=== PATIENT | male | born 1950 | race Caucasian/White ===

== ENCOUNTER 2019-02-14 15:34 | Emergency (ER) | payer MEDICARE, OTHER, SELFPAY ==
[2019-02-14 15:42] VITALS: BP 147/82; PULSE 81; RESP 16; TEMP 36.4; O2SAT 100; BMI 25.0
--- NOTE | 2019-02-14 15:42 | DI.RAD.S_ITS ---
PROCEDURE: XR SHOULDER LT MIN 2V INDICATIONS: Fell down a couple stairs TECHNIQUE: 2 views of the shoulder were acquired. COMPARISON: None. FINDINGS: Bones: No fractures or dislocations. No suspicious bony lesions. No rib fractures are seen, the visualized ribs appear intact. Mild degenerative changes are seen, mild subacromial spurring. Soft tissues: No suspicious soft tissue calcifications. The visualized lung demonstrates an unremarkable appearance. IMPRESSION: No acute plain film abnormality is seen. If there is focal tenderness, or other clinical concern for a fracture not seen on these images in this patient with a given history of trauma, please consider a dedicated CT or a short-term followup plain film series (in 1-2 weeks) for further evaluation. Dictated by: Amadou Yancey M.D. on 02/14/2019 at 15:11 Approved by: Amadou Yancey M.D. on 02/14/2019 at 15:12
[2019-02-14] MEDS: HYDROCODONE/ACET 5/325 TABLET 1 TAB PO ×2 (16:13→17:54)
[2019-02-14] MEDS: ONDANSETRON 4 MG ODT SL (16:14)
--- NOTE | 2019-02-14 16:15 | DI.RAD.S_ITS ---
PROCEDURE: XR ELBOW LT 2V INDICATIONS: s/p fall on steps, L arm pain TECHNIQUE: 3 views of the elbow were acquired. COMPARISON: [facility], CT, CT HEAD/BRAIN WO CON, 02/14/2019, 16:22. [facility], CR, XR SHOULDER LT MIN 2V, 02/14/2019, 15:54. FINDINGS: Bones: No fractures or dislocations. No suspicious bony lesions. Soft tissues: No elbow joint effusion. No suspicious soft tissue calcifications. IMPRESSION: No displaced fractures are seen on these plain films. If there is focal tenderness, or other clinical concern for a fracture not seen on these images in this patient with a given history of trauma, please consider a dedicated CT or a short-term followup plain film series (in 1-2 weeks) for further evaluation. Dictated by: Amadou Yancey M.D. on 02/14/2019 at 15:43 Approved by: Amadou Yancey M.D. on 02/14/2019 at 15:44
--- NOTE | 2019-02-14 16:18 | DI.CT.S_ITS ---
PROCEDURE: CT HEAD/BRAIN WO CON INDICATIONS: s/p fall 5-6 steps, on Eliquis TECHNIQUE: Noncontrast 4.5 mm thick angled axial sections acquired from the foramen magnum to the vertex, with coronal and sagittal reformats. For radiation dose reduction, the following was used: automated exposure control, adjustment of mA and/or kV according to patient size. COMPARISON: [facility], CR, XR SHOULDER LT MIN 2V, 02/14/2019, 15:54. FINDINGS: Image quality: Excellent. CSF spaces: Basal cisterns are patent. No extra-axial fluid collections. The ventricles are symmetric in size and shape. Brain: No intracranial bleeds or masses. There is cerebral volume loss for age, with resultant ventricular and sulcal prominence. There are periventricular and deep white matter chronic small vessel ischemic changes. There is a remote infarction seen involving the deep white matter of the left frontal lobe, which continues into the left basal ganglia. There is intracranial internal carotid artery atherosclerosis. Skull and face: Calvarium and visualized facial bones appear intact, without suspicious lesions. Sinuses: Visualized sinuses and mastoids are clear. IMPRESSION: No findings of acute intracranial hemorrhage can be seen. 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 Dictated by: Amadou Yancey M.D. on 02/14/2019 at 15:41 Approved by: Amadou Yancey M.D. on 02/14/2019 at 15:43
--- NOTE | 2019-02-14 16:56 | ED.UPPEXIN ---
HPI - Extremity Injury (Upper) <RADHA Miller - Last Filed: 02/15/19 01:08> General Chief Complaint: Extremity Injury, Upper Stated Complaint: Left shoulder injury Time Seen by Provider: 02/14/19 15:41 Source: patient and family Mode of arrival: ambulatory Limitations: no limitations History of Present Illness HPI narrative: This is a 68 you're male, nonsmoker, who presents with his spouse to ED with chief complain of left arm pain mostly in anterior shoulder pain from fall. He reports his pain is in 8 to 910. 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 He had sustained a fall on 5-6 steps on the stairs due to history of CVA and right-sided weakness. He reports he fell after he tripped and he was not having chest pain, difficulty breathing nor was dizzy prior to the fall. He currently is taking Eliquis for history of stroke and reports unsure of hitting his head. He denies mid cervical tenderness. He has a history of AFib and an ablation surgery was done for this. He arrived with sling that was applied by medics at the scene. He had planned return to home in about a week. He reports that he has able to move his fingers but some tingling numbness to his fingers. The patient asked whether MRI test could be done today. Related Data Previous Rx's Medication Instructions Recorded hydrocodone-acetaminophen [[place]] 1 tab PO Q4-6H PRN #20 tab 02/14/19 Allergies Allergy/AdvReac Type Severity Reaction Status Date / Time Sulfa (Sulfonamide Allergy Verified 02/14/19 15:42 Antibiotics) Review of Systems <RADHA Miller - Last Filed: 02/15/19 01:08> Review of Systems General: Denies fever, chills, fatigue, malaise, sweats. HEENT: Denies headache or neck pain. Denies sinus pain, ear pain, sore throat, difficulty swallowing, dizziness. Respiratory: Denies dyspnea, cough, wheezing, hemoptysis, sputum. Cardiovascular: Denies chest pain, palpitations, orthopnea, edema. Gastrointestinal: Reports mild nausea. Denies vomiting, abdominal pain, diarrhea, constipation, melena. : Denies dysuria, frequency, incontinence, hematuria, urinary retention. Musculoskeletal: Reports severe L anterior shoulder pain. Reports pain in L arm. Denies weakness, joint pain or bony pain. Skin: Denies rash, skin lesions, or other. Neurologic: Reports R side weakness from the previous CVA. Denies headache. Some tingling/numbness to L fingers. Denies change in speech, confusion, seizures, incoordination. Psychiatric: No concerning psychosocial issues. 12-point review of systems is negative except for those stated above. PFSH <RADHA Miller - Last Filed: 02/15/19 01:08> Medical History (Updated 02/15/19 @ 00:39 by RADHA Miller) History of CVA (cerebrovascular accident) (Acute) Right sided weakness (Chronic) History of atrial fibrillation without current medication (Resolved) Surgical History (Updated 02/15/19 @ 00:39 by RADHA Miller) H/O cardiac radiofrequency ablation (Chronic) Social History (Updated 02/15/19 @ 00:39 by RADHA Miller) Smoking Status: Never smoker alcohol intake: never substance use type: does not use Social History (Updated 02/15/19 @ 00:39 by RADHA Miller) Smoking Status: Never smoker alcohol intake: never substance use type: does not use Exam <RADHA Miller - Last Filed: 02/15/19 01:08> Narrative Exam Narrative: GEN: Alert, oriented x 3, well appearing and nourished. Appears to be in discomfort. Head: Normal cephalic, atraumatic. No scalp or temporal tenderness, palpable mass or rash. EYES: Pupils are equal, round, and reactive to light and accommodation. Extraocular muscles are intact bilaterally. There is no subconjunctival hemorrhage, exudate and sclera non-icteric. ENT: Bilateral auditory canals without drainage or hemotympanum. Hearing grossly intact. Nose without bleeding, purulent discharge. Mucous membrane moist, no mucosal lesion. Throat without erythema, tonsillar hypertrophy or exudate. Airway patent. Neck: No midcervical bony tenderness to palpate and able to flex, extend and rotate his neck w/o pain. Trachea in midline. No JVD, non-tender without lymphadenopathy. No masses or thyroid megaly. Supple, non-tender and meningeal signs. CARDIAC: Normal regular rate and rhythm without murmurs, gallops, or rubs. No chest wall tenderness. No peripheral edema, cyanosis or pallor. Capillary refill is less than 2 seconds. RESPIRATORY: Lungs are cleat to auscultate bilaterally. No cough, wheezes, rales, or rhonchi. No stridor, respiratory distress, increase work of breathing, or accessary muscle used. ABD: Abdomen soft, nontender and non-distended. No guarding or rebound tenderness to palpate. Bowel sounds are normal in all 4 quadrants. There is no palpable masses or organomegaly. SKIN: Warm, dry, normal color for patient. No erythema, lesions or rash. BACK: Nontender without deformity or crepitance. No flank tenderness. NEUROLOGICAL: Alert and oriented to place, time and person. Sensation and motor function intact bilaterally. No facial droops, dysphasia. PSYCHIATRIC: Good judgement and reason, without hallucinations, abnormal affect or abnormal behaviors during the examination. Initial Vital Signs Initial Vital Signs: Vital Signs Temperature 97.5 F L 02/14/19 15:42 Pulse Rate 81 02/14/19 15:42 Respiratory Rate 16 02/14/19 15:42 Blood Pressure 147/82 H 02/14/19 15:42 Pulse Oximetry 100 02/14/19 15:42 Extrem General: normal to inspection, capillary refill normal, no clubbing, cyanosis or edema and no calf tenderness Right upper extremity: normal to inspection and normal capillary refill Left upper extremity: normal to inspection, normal capillary refill and shoulder/upper arm Details: inspection abnormal, tenderness and abnormal ROM (Decreased active and passive ROM due to pain with flextion, extension, abduction, adduction, internal and external rotation) Details: pain with active ROM and pain with passive ROM; no swelling, no abrasions, no lacerations, no ecchymosis, no deformity and no unsual warmth; no cyanosis, no edema and joint enlargement noted Right lower extremity: normal to inspection Left lower extremity: normal to inspection <Marcie Da Silva DO - Last Filed: 02/15/19 08:42> Initial Vital Signs Initial Vital Signs: Vital Signs Temperature 97.5 F L 02/14/19 15:42 Pulse Rate 81 02/14/19 15:42 Respiratory Rate 16 02/14/19 15:42 Blood Pressure 147/82 H 02/14/19 15:42 Pulse Oximetry 100 02/14/19 15:42 Procedures <[facility]BY [facility] Last Filed: 02/15/19 01:08> Orthopedic Splinting/Casting Injury #1: Side: left Upper Extremity Injury Location: shoulder Upper Extremity Immobilizer: sling/shoulder immobilizer Post splinting neuro exam: intact Post splinting vascular exam: intact Placed by: Nursing Scores <Tung Pennington [facility] Last Filed: 02/15/19 01:08> Nexus Score for C-Spine Focal Neurologic deficit present: No Midline spinal tenderness present: No Altered level of conciousness present: No Intoxication present: No Distracting Injury Present: Yes Nexus Criteria for C-spine: 1 Course <Tung MossABBY [facility] Last Filed: 02/15/19 01:08> Orders Ordered: Discontinued Medications Hydrocodone Bitart/Acetaminophen ([place] 5/325) 1 tab PO NOW ONE Stop: 02/14/19 16:02 Last Admin: 02/14/19 16:13 Dose: 1 tab Hydrocodone Bitart/Acetaminophen ([place] 5/325) 1 tab PO NOW ONE Stop: 02/14/19 17:50 Last Admin: 02/14/19 17:54 Dose: 1 tab Hydrocodone Bitart/Acetaminophen (Vicodin Prepack) 1 bottle MISC SEEINSTR ONE Stop: 02/14/19 17:50 Last Admin: 02/14/19 17:54 Dose: 1 bottle Cyclobenzaprine HCl (Flexeril 10 Mg Prepack) 1 bottle MISC SEEINSTR ASHLEIGH Last Admin: 02/14/19 17:54 Dose: 1 bottle Ondansetron HCl (Zofran Odt) 4 mg SL NOW ONE Stop: 02/14/19 16:02 Last Admin: 02/14/19 16:14 Dose: 4 mg Ondansetron HCl (Zofran Odt Prepack) 1 bottle MISC SEEINSTR ONE Stop: 02/14/19 17:45 Last Admin: 02/14/19 17:54 Dose: 1 bottle Vital Signs - 8 hr 02/14/19 18:22 Pulse Rate 71 Respiratory Rate 20 Blood Pressure 123/81 Pulse Oximetry 100 <Marcie Da Silva DO - Last Filed: 02/15/19 08:42> Orders Ordered: Discontinued Medications Hydrocodone Bitart/Acetaminophen ([place] 5/325) 1 tab PO NOW ONE Stop: 02/14/19 16:02 Last Admin: 02/14/19 16:13 Dose: 1 tab Hydrocodone Bitart/Acetaminophen ([place] 5/325) 1 tab PO NOW ONE Stop: 02/14/19 17:50 Last Admin: 02/14/19 17:54 Dose: 1 tab Hydrocodone Bitart/Acetaminophen (Vicodin Prepack) 1 bottle MISC SEEINSTR ONE Stop: 02/14/19 17:50 Last Admin: 02/14/19 17:54 Dose: 1 bottle Cyclobenzaprine HCl (Flexeril 10 Mg Prepack) 1 bottle MISC SEEINSTR ASHLEIGH Last Admin: 02/14/19 17:54 Dose: 1 bottle Ondansetron HCl (Zofran Odt) 4 mg SL NOW ONE Stop: 02/14/19 16:02 Last Admin: 02/14/19 16:14 Dose: 4 mg Ondansetron HCl (Zofran Odt Prepack) 1 bottle MISC SEEINSTR ONE Stop: 02/14/19 17:45 Last Admin: 02/14/19 17:54 Dose: 1 bottle Vital Signs - 8 hr 02/14/19 18:22 Pulse Rate 71 Respiratory Rate 20 Blood Pressure 123/81 Pulse Oximetry 100 MDM - Extremity Injury (Upper) <RADHA Miller - Last Filed: 02/15/19 01:08> Differential Diagnosis Differential diagnosis: Likely sprain and strain of wrist, fracture of wrist, dislocation of shoulder, fracture of humerus, fracture of clavicle and other (sprain/contusion to L shoulder, head injury, head bleeding) Medical Records Attestation: I reviewed the patient's medical records. Imaging Data CT-head: Radiologist's impression: [address] [address] [address] Scan Report Signed Patient: Andreas Corona CMR#: [id number] : 1Acct:[id number] Age/Sex: 68 / MDate of Service: 02/14/19 Loc: ED Accession Number: [id number] Procedure: CT head/brain wo con Ordering Provider: Tung Pennington [facility] PROCEDURE: CT HEAD/BRAIN WO CON INDICATIONS: s/p fall 5-6 steps, on Eliquis TECHNIQUE: Noncontrast 4.5 mm thick angled axial sections acquired from the foramen magnum to the vertex, with coronal and sagittal reformats. For radiation dose reduction, the following was used: automated exposure control, adjustment of mA and/or kV according to patient size. COMPARISON: [facility], MICHELE, XR SHOULDER LT MIN 2V, 02/14/2019, 15:54. FINDINGS: Image quality: Excellent. CSF spaces: Basal cisterns are patent. No extra-axial fluid collections. The ventricles are symmetric in size and shape. Brain: No intracranial bleeds or masses. There is cerebral volume loss for age, with resultant ventricular and sulcal prominence. There are periventricular and deep white matter chronic small vessel ischemic changes. There is a remote infarction seen involving the deep white matter of the left frontal lobe, which continues into the left basal ganglia. There is intracranial internal carotid artery atherosclerosis. Skull and face: Calvarium and visualized facial bones appear intact, without suspicious lesions. Sinuses: Visualized sinuses and mastoids are clear. IMPRESSION: No findings of acute intracranial hemorrhage can be seen. 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 Dictated by: Amadou Yancey M.D. on 02/14/2019 at 15:41 Approved by: Amadou Yancey M.D. on 02/14/2019 at 15:43 XR-elbow: Radiologist's impression: [place] [address] CT Scan Report Signed Patient: Andreas Corona CMR#: [id number] : [id number]:[id number] Age/Sex: 68 / MDate of Service: 02/14/19 Loc: ED Accession Number: [id number] Procedure: CT head/brain wo con Ordering Provider: Tung Pennington [facility] PROCEDURE: CT HEAD/BRAIN WO CON INDICATIONS: s/p fall 5-6 steps, on Eliquis TECHNIQUE: Noncontrast 4.5 mm thick angled axial sections acquired from the foramen magnum to the vertex, with coronal and sagittal reformats. For radiation dose reduction, the following was used: automated exposure control, adjustment of mA and/or kV according to patient size. COMPARISON: [facility], CR, XR SHOULDER LT MIN 2V, 02/14/2019, 15:54. FINDINGS: Image quality: Excellent. CSF spaces: Basal cisterns are patent. No extra-axial fluid collections. The ventricles are symmetric in size and shape. Brain: No intracranial bleeds or masses. There is cerebral volume loss for age, with resultant ventricular and sulcal prominence. There are periventricular and deep white matter chronic small vessel ischemic changes. There is a remote infarction seen involving the deep white matter of the left frontal lobe, which continues into the left basal ganglia. There is intracranial internal carotid artery atherosclerosis. Skull and face: Calvarium and visualized facial bones appear intact, without suspicious lesions. Sinuses: Visualized sinuses and mastoids are clear. IMPRESSION: No findings of acute intracranial hemorrhage can be seen. 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 Dictated by: Amadou Yancey M.D. on 02/14/2019 at 15:41 Approved by: Amadou Yancey M.D. on 02/14/2019 at 15:43 XR-shoulder: Radiologist's impression: [place] [address] XRay Report Signed Patient: Andreas Corona CMR#: [id number] : [id number]:[id number] Age/Sex: 68 / MDate of Service: 02/14/19 Loc: ED Accession Number: [id number] Procedure: XR shoulder LT min 2V Ordering Provider: Tung Pennington PROCEDURE: XR SHOULDER LT MIN 2V INDICATIONS: Fell down a couple stairs TECHNIQUE: 2 views of the shoulder were acquired. COMPARISON: None. FINDINGS: Bones: No fractures or dislocations. No suspicious bony lesions. No rib fractures are seen, the visualized ribs appear intact. Mild degenerative changes are seen, mild subacromial spurring. Soft tissues: No suspicious soft tissue calcifications. The visualized lung demonstrates an unremarkable appearance. IMPRESSION: No acute plain film abnormality is seen. If there is focal tenderness, or other clinical concern for a fracture not seen on these images in this patient with a given history of trauma, please consider a dedicated CT or a short-term followup plain film series (in 1-2 weeks) for further evaluation. Dictated by: Amadou Yancey M.D. on 02/14/2019 at 15:11 Approved by: Amadou Yancey M.D. 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 He initially denied of hitting his head to triage nurse but reports unsure of this to me. There was no step-off, crepitus, abrasion, hematoma on the scalp. He had no mid cervical tenderness to palpate and active range of motion for flexion, extension, rotation or intact without pain. He complained of mainly and severe left anterior shoulder pain with some tingling numbness to fingertips. He is currently taking Eliquis for the history of CVA. He has residual of right-sided weakness since CVA. The patient reports tripped and fall this afternoon and denies any chest pain, breathing difficulty, dizziness prior to the fall. Initially, the shoulder or arm exam was difficult due to his severe pain. However, his circulation, cap refill, movement was intact. Given his history and fall, head CT was obtained and it indicates no acute findings or bleeding. However, it showed remote infarct in his left basal ganglia and deep white matter. The NEXUS for C-spine score was [address] test was deferred after correlating with physical exam. The patient's left shoulder x-ray shows no fractures or dislocations or bony lesions. There was no rib fractures were seen. The lung demonstrates an unremarkable appearance. There was mild degenerative changes were seen along mild sub acromial spurring. Left elbow x-ray shows no fractures, elbow joint effusion, soft tissue calcifications or dislocations. The patient was medicated with Zofran ODT and 1 tab of [place] when he arrived to ED. The patient reported the medication took the edge off on his pain. More detailed shoulder and upper arm exam was done at this time and the patient had limited active and passive range of motion on his left arm due to pain. The patient was medicated with additional [place] prior DC to home. Shoulder immobilizer was applied on left arm for comfort and the patient was advised to use ice pack for next couple of days often. Patient is planning to call his orthopedist friend [place] and will consider living the Tylenol earlier than he planned to follow up. Patient was discharged to home with prepack cyclobenzaprine, Zofran, [place] since local pharmacy is closed. Additional paper prescription for [place] has provided if patient stays in town for next 1 week. Narcotic medication precautions were discussed with the patient and spouse. The patient was advised follow-up with his primary care physician for further evaluation, possibly additional imaging tests. Patient was to monitor red flag symptoms such as weakness, tingling/numbness, severe pain, chest pain, difficulty breathing, any other acute concerns and return to ED. There was no questions were expressed by the patient and family member and they both agreed with treatment plan. Discharge Plan Departure Patient Disposition: Home Clinical Impression: Fall (on) (from) other stairs and steps, initial encounter Left shoulder strain Qualifiers: Encounter type: initial encounter Qualified Code(s): S46.912A - Strain of unspecified muscle, fascia and tendon at shoulder and upper arm level, left arm, initial encounter Discharge Date/Time: 02/14/19 18:23 Interventions: ED Discharge Assessment Last Done: 02/14/19 18:22 Instructions: How to Prevent Falls, DI for Shoulder Pain Activity Restrictions/Additional Instructions: You have been diagnosed with [ shoulder strain and mechanical fall on stairs ]. What to do: *Take your medications as directed. Cyclobenzaprine and [place] will make you drowsy. Please take precaution and not to drive, drink alcohol, or operate heavy equipment while on this medications. You could take cyclobenzaprine at night trying to sleep. [place] could cause constipation so please increase your fiber and fluid intake. Please use shoulder immobilizer for comfort and ice packs for the next couple of days frequently. *Follow up with your primary care provider next week and call for an appointment. You may need further imaging test and/orthopedic referral. Let them know you were seen in the ED and that we asked you to be seen in follow up. *Return to ED if you have any new, worsening, or concerning symptoms, such as [severe pain, tingling numbness to left arm, weakness, chest pain, difficulty breathing, dizziness, any acute worsening symptoms]. Prescriptions: New hydrocodone-acetaminophen [[place]] 5-325 mg tablet 1 tab PO Q4-6H PRN (Reason: pain) Qty: 20 RF: 0 <Marcie Da Silva DO - Last Filed: 02/15/19 08:42> Cosign ED Attending Cosignature Attestation: I was immediately available in the department for consultation, care was discussed. This documentation has been reviewed and I agree with assessment and plan. Supervised by Marcie Da Silva DO
--- NOTE | 2019-02-14 16:59 | ED_ITS ---
HPI - Extremity Injury (Upper) <RADHA Miller - Last Filed: 02/15/19 01:08> General Chief Complaint: Extremity Injury, Upper Stated Complaint: Left shoulder injury Time Seen by Provider: 02/14/19 15:41 Source: patient and family Mode of arrival: ambulatory Limitations: no limitations History of Present Illness HPI narrative: This is a 68 you're male, nonsmoker, who presents with his spouse to ED with chief complain of left arm pain mostly in anterior shoulder pain from fall. He reports his pain is in 8 to 910. 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 He had sustained a fall on 5-6 steps on the stairs due to history of CVA and right- sided weakness. He reports he fell after he tripped and he was not having chest pain, difficulty breathing nor was dizzy prior to the fall. He currently is taking Eliquis for history of stroke and reports unsure of hitting his head. He denies mid cervical tenderness. He has a history of AFib and an ablation surgery was done for this. He arrived with sling that was applied by medics at the scene. He had planned return to home in about a week. He reports that he h as able to move his fingers but some tingling numbness to his fingers. The patient asked whether MRI test could be done today. Related Data Previous Rx's Medication Instructions Recorded hydrocodone-acetaminophen [[place]] 1 tab PO Q4-6H PRN #20 tab 02/14/19 Allergies Allergy/AdvReac Type Severity Reaction Status Date / Time Sulfa (Sulfonamide Allergy Verified 02/14/19 15:42 Antibiotics) Review of Systems <RADHA Miller - Last Filed: 02/15/19 01:08> Review of Systems General: Denies fever, chills, fatigue, malaise, sweats. HEENT: Denies headache or neck pain. Denies sinus pain, ear pain, sore throat, difficulty swallowing, dizziness. Respiratory: Denies dyspnea, cough, wheezing, hemoptysis, sputum. Cardiovascular: Denies chest pain, palpitations, orthopnea, edema. Gastrointestinal: Reports mild nausea. Denies vomiting, abdominal pain, diarrhea, constipation, melena. : Denies dysuria, frequency, incontinence, hematuria, urinary retention. Musculoskeletal: Reports severe L anterior shoulder pain. Reports pain in L arm. Denies weakness, joint pain or bony pain. Skin: Denies rash, skin lesions, or other. Neurologic: Reports R side weakness from the previous CVA. Denies headache. Some tingling/numbness to L fingers. Denies change in speech, confusion, seizures, incoordination. Psychiatric: No concerning psychosocial issues. 12-point review of systems is negative except for those stated above. PFSH <RADHA Miller - Last Filed: 02/15/19 01:08> Medical History (Updated 02/15/19 @ 00:39 by RADHA Miller) History of CVA (cerebrovascular accident) (Acute) Right sided weakness (Chronic) History of atrial fibrillation without current medication (Resolved) Surgical History (Updated 02/15/19 @ 00:39 by RADHA Miller) H/O cardiac radiofrequency ablation (Chronic) Social History (Updated 02/15/19 @ 00:39 by RADHA Miller) Smoking Status: Never smoker alcohol intake: never substance use type: does not use Social History (Updated 02/15/19 @ 00:39 by RADHA Miller) Smoking Status: Never smoker alcohol intake: never substance use type: does not use Exam <RADHA Miller - Last Filed: 02/15/19 01:08> Narrative Exam Narrative: GEN: Alert, oriented x 3, well appearing and nourished. Appears to be in discomfort. Head: Normal cephalic, atraumatic. No scalp or temporal tenderness, palpable mass or rash. EYES: Pupils are equal, round, and reactive to light and accommodation. Extraocular muscles are intact bilaterally. There is no subconjunctival hemorrhage, exudate and sclera non-icteric. ENT: Bilateral auditory canals without drainage or hemotympanum. Hearing grossly intact. Nose without bleeding, purulent discharge. Mucous membrane moist, no mucosal lesion. Throat without erythema, tonsillar hypertrophy or exudate. Airway patent. Neck: No midcervical bony tenderness to palpate and able to flex, extend and rotate his neck w/o pain. Trachea in midline. No JVD, non-tender without lymphadenopathy. No masses or thyroid megaly. Supple, non-tender and meningeal signs. CARDIAC: Normal regular rate and rhythm without murmurs, gallops, or rubs. No chest wall tenderness. No peripheral edema, cyanosis or pallor. Capillary refi ll is less than 2 seconds. RESPIRATORY: Lungs are cleat to auscultate bilaterally. No cough, wheezes, rales, or rhonchi. No stridor, respiratory distress, increase work of breathing, or accessary muscle used. ABD: Abdomen soft, nontender and non-distended. No guarding or rebound tenderness to palpate. Bowel sounds are normal in all 4 quadrants. There is no palpable masses or organomegaly. SKIN: Warm, dry, normal color for patient. No erythema, lesions or rash. BACK: Nontender without deformity or crepitance. No flank tenderness. NEUROLOGICAL: Alert and oriented to place, time and person. Sensation and motor function intact bilaterally. No facial droops, dysphasia. PSYCHIATRIC: Good judgement and reason, without hallucinations, abnormal affect or abnormal behaviors during the examination. Initial Vital Signs Initial Vital Signs: Vital Signs Temperature 97.5 F L 02/14/19 15:42 Pulse Rate 81 02/14/19 15:42 Respiratory Rate 16 02/14/19 15:42 Blood Pressure 147/82 H 02/14/19 15:42 Pulse Oximetry 100 02/14/19 15:42 Extrem General: normal to inspection, capillary refill normal, no clubbing, cyanosis or edema and no calf tenderness Right upper extremity: normal to inspection and normal capillary refill Left upper extremity: normal to inspection, normal capillary refill and shoulder/upper arm Details: inspection abnormal, tenderness and abnormal ROM (Decreased active and passive ROM due to pain with flextion, extension, abduction, adduction, internal and external rotation) Details: pain with active ROM and pain with passive ROM; no swelling, no abrasions, no lacerations, no ecchymosis, no deformity and no unsual warmth; no cyanosis, no edema and joint enlargement noted Right lower extremity: normal to inspection Left lower extremity: normal to inspection <Marcie Da Silva DO - Last Filed: 02/15/19 08:42> Initial Vital Signs Initial Vital Signs: Vital Signs Temperature 97.5 F L 02/14/19 15:42 Pulse Rate 81 02/14/19 15:42 Respiratory Rate 16 02/14/19 15:42 Blood Pressure 147/82 H 02/14/19 15:42 Pulse Oximetry 100 02/14/19 15:42 Procedures <[facility]ABBY [facility] Last Filed: 02/15/19 01:08> Orthopedic Splinting/Casting Injury #1: Side: left Upper Extremity Injury Location: shoulder Upper Extremity Immobilizer: sling/shoulder immobilizer Post splinting neuro exam: intact Post splinting vascular exam: intact Placed by: Nursing Scores <Tung MossDeanaABBY [facility] Last Filed: 02/15/19 01:08> Nexus Score for C-Spine Focal Neurologic deficit present: No Midline spinal tenderness present: No Altered level of conciousness present: No Intoxication present: No Distracting Injury Present: Yes Nexus Criteria for C-spine: 1 Course <Tung MossDeanaABBY [facility] Last Filed: 02/15/19 01:08> Orders Ordered: Discontinued Medications Hydrocodone Bitart/Acetaminophen ([place] 5/325) 1 tab PO NOW ONE Stop: 02/14/19 16:02 Last Admin: 02/14/19 16:13 Dose: 1 tab Hydrocodone Bitart/Acetaminophen ([place] 5/325) 1 tab PO NOW ONE Stop: 02/14/19 17:50 Last Admin: 02/14/19 17:54 Dose: 1 tab Hydrocodone Bitart/Acetaminophen (Vicodin Prepack) 1 bottle MISC SEEINSTR ONE Stop: 02/14/19 17:50 Last Admin: 02/14/19 17:54 Dose: 1 bottle Cyclobenzaprine HCl (Flexeril 10 Mg Prepack) 1 bottle MISC SEEINSTR ASHLEIGH Last Admin: 02/14/19 17:54 Dose: 1 bottle Ondansetron HCl (Zofran Odt) 4 mg SL NOW ONE Stop: 02/14/19 16:02 Last Admin: 02/14/19 16:14 Dose: 4 mg Ondansetron HCl (Zofran Odt Prepack) 1 bottle MISC SEEINSTR ONE Stop: 02/14/19 17:45 Last Admin: 02/14/19 17:54 Dose: 1 bottle Vital Signs - 8 hr 02/14/19 18:22 Pulse Rate 71 Respiratory Rate 20 Blood Pressure 123/81 Pulse Oximetry 100 <Marcie Da Silva DO - Last Filed: 02/15/19 08:42> Orders Ordered: Discontinued Medications Hydrocodone Bitart/Acetaminophen ([place] 5/325) 1 tab PO NOW ONE Stop: 02/14/19 16:02 Last Admin: 02/14/19 16:13 Dose: 1 tab Hydrocodone Bitart/Acetaminophen ([place] 5/325) 1 tab PO NOW ONE Stop: 02/14/19 17:50 Last Admin: 02/14/19 17:54 Dose: 1 tab Hydrocodone Bitart/Acetaminophen (Vicodin Prepack) 1 bottle MISC SEEINSTR ONE Stop: 02/14/19 17:50 Last Admin: 02/14/19 17:54 Dose: 1 bottle Cyclobenzaprine HCl (Flexeril 10 Mg Prepack) 1 bottle MISC SEEINSTR ASHLEIGH Last Admin: 02/14/19 17:54 Dose: 1 bottle Ondansetron HCl (Zofran Odt) 4 mg SL NOW ONE Stop: 02/14/19 16:02 Last Admin: 02/14/19 16:14 Dose: 4 mg Ondansetron HCl (Zofran Odt Prepack) 1 bottle MISC SEEINSTR ONE Stop: 02/14/19 17:45 Last Admin: 02/14/19 17:54 Dose: 1 bottle Vital Signs - 8 hr 02/14/19 18:22 Pulse Rate 71 Respiratory Rate 20 Blood Pressure 123/81 Pulse Oximetry 100 MDM - Extremity Injury (Upper) <RADHA Miller - Last Filed: 02/15/19 01:08> Differential Diagnosis Differential diagnosis: Likely sprain and strain of wrist, fracture of wrist, dislocation of shoulder, fracture of humerus, fracture of clavicle and other (sprain/contusion to L shoulder, head injury, head bleeding) Medical Records Attestation: I reviewed the patient's medical records. Imaging Data CT-head: Radiologist's impression: [address] [address] [address] Scan Report Signed Patient: Andreas Corona CMR#: [id number] : 1Acct:[id number] Age/Sex: 68 / MDate of Service: 02/14/19 Loc: ED Accession Number: [id number] Procedure: CT head/brain wo con Ordering Provider: Tung PenningtonP PROCEDURE: CT HEAD/BRAIN WO CON INDICATIONS: s/p fall 5-6 steps, on Eliquis TECHNIQUE: Noncontrast 4.5 mm thick angled axial sections acquired from the foramen magnum to the vertex, with coronal and sagittal reformats. For radiation dose reduction, the following was used: automated exposure control, adjustment of mA and/or kV according to patient size. COMPARISON: [facility], MICHELE, XR SHOULDER LT MIN 2V, 02/14/2019, 15:54. FINDINGS: Image quality: Excellent. CSF spaces: Basal cisterns are patent. No extra-axial fluid collections. The ventricles are symmetric in size and shape. Brain: No intracranial bleeds or masses. There is cerebral volume loss for age, with resultant ventricular and sulcal prominence. There are periventricular and deep white matter chronic small vessel ischemic changes. There is a remote infarction seen involving the deep white matter of the left frontal lobe, which continues into the left basal ganglia. There is intracranial internal carotid artery atherosclerosis. Skull and face: Calvarium and visualized facial bones appear intact, without suspicious lesions. Sinuses: Visualized sinuses and mastoids are clear. IMPRESSION: No findings of acute intracranial hemorrhage can be seen. 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 Dictated by: Amadou Yancey M.D. on 02/14/2019 at 15:41 Approved by: Amadou Yancey M.D. on 02/14/2019 at 15:43 XR-elbow: Radiologist's impression: [place] [address] CT Scan Report Signed Patient: Andreas Corona CMR#: [id number] : 1950cct:[id number] Age/Sex: 68 / MDate of Service: 02/14/19 Loc: ED Accession Number: [id number] Procedure: CT head/brain wo con Ordering Provider: Tung Pennington [facility] PROCEDURE: CT HEAD/BRAIN WO CON INDICATIONS: s/p fall 5-6 steps, on Eliquis TECHNIQUE: Noncontrast 4.5 mm thick angled axial sections acquired from the foramen magnum to the vertex, with coronal and sagittal reformats. For radiation dose reduction, the following was used: automated exposure control, adjustment of mA and/or kV according to patient size. COMPARISON: [facility], CR, XR SHOULDER LT MIN 2V, 02/14/2019, 15:54. FINDINGS: Image quality: Excellent. CSF spaces: Basal cisterns are patent. No extra-axial fluid collections. The ventricles are symmetric in size and shape. Brain: No intracranial bleeds or masses. There is cerebral volume loss for age, with resultant ventricular and sulcal prominence. There are periventricular and deep white matter chronic small vessel ischemic changes. There is a remote infarction seen involving the deep white matter of the left frontal lobe, which continues into the left basal ganglia. There is intracranial internal carotid artery atherosclerosis. Skull and face: Calvarium and visualized facial bones appear intact, without suspicious lesions. Sinuses: Visualized sinuses and mastoids are clear. IMPRESSION: No findings of acute intracranial hemorrhage can be seen. Remote infarction seen involving the left basal ganglia and left deep white ma tter. Dictated by: Amadou Yancey M.D. on 02/14/2019 at 15:41 Approved by: Amadou Yancey M.D. on 02/14/2019 at 15:43 XR-shoulder: Radiologist's impression: [place] [address] XRay Report Signed Patient: Andreas Corona CMR#: [id number] : 1950cct:[id number] Age/Sex: 68 / MDate of Service: 02/14/19 Loc: ED Accession Number: [id number] Procedure: XR shoulder LT min 2V Ordering Provider: Tung Pennington PROCEDURE: XR SHOULDER LT MIN 2V INDICATIONS: Fell down a couple stairs TECHNIQUE: 2 views of the shoulder were acquired. COMPARISON: None. FINDINGS: Bones: No fractures or dislocations. No suspicious bony lesions. No rib fractures are seen, the visualized ribs appear intact. Mild degenerative changes are seen, mild subacromial spurring. Soft tissues: No suspicious soft tissue calcifications. The visualized lung demonstrates an unremarkable appearance. IMPRESSION: No acute plain film abnormality is seen. If there is focal tenderness, or other clinical concern for a fracture not seen on these images in this patient with a given history of trauma, please consider a dedicated CT or a short-term followup plain film series (in 1-2 weeks) for further evaluation. Dictated by: Amadou Yancye M.D. on 02/14/2019 at 15:11 Approved by: Amadou Yancey M.D. 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 He initially denied of hitting his head to triage nurse but reports unsure of this to me. There was no step-off, crepitus, abrasion, hematoma on the scalp. He had no mid cervical tenderness to palpate and active range of motion for flexion, extension, rotation or intact without pain. He complained of mainly and severe left anterior shoulder pain with some tingling numbness to fingertips. He is currently taking Eliquis for the history of CVA. He has residual of right-sided weakness since CVA. The patient reports tripped and fall this afternoon and denies any chest pain, breathing difficulty, dizziness prior to the fall. Initially, the shoulder or arm exam was difficult due to his severe pain. However, his circulation, cap refill, movement was intact. Given his history and fall, head CT was obtained and it indicates no acute findings or bleeding. However, it showed remote infarct in his left basal ganglia and deep white matter. The NEXUS for C-spine score was [address] test was deferred after correlating with physical exam. The patient's left shoulder x-ray shows no fractures or dislocations or bony lesions. There was no rib fractures were seen. The lung demonstrates an unremarkable appearance. There was mild degenerative changes were seen along mild sub acromial spurring. Left elbow x- ray shows no fractures, elbow joint effusion, soft tissue calcifications or dislocations. The patient was medicated with Zofran ODT and 1 tab of [place] when he arrived to ED. The patient reported the medication took the edge off on his pain. More detailed shoulder and upper arm exam was done at this time and the patient had limited active and passive range of motion on his left arm due to pain. The patient was medicated with additional [place] prior DC to home. Shoulder immobilizer was applied on left arm for comfort and the patient was advised to use ice pack for next couple of days often. Patient is planning to call his orthopedist friend back at [place] in [place] and will consider living the Tylenol earlier than he planned to follow up. Patient was discharged to home with prepack cyclobenzaprine, Zofran, [place] since local pharmacy is closed. Additional paper prescription for [place] has provided if patient stays in town for next 1 week. Narcotic medication precautions were discussed with the patient and spouse. The patient was advised follow-up with his primary care physician for further evaluation, possibly additional imaging tests. Patient was to monitor red flag symptoms such as weakness, tingling/numbness, severe pain, chest pain, difficulty breathing, any other acute concerns and return to ED. There was no questions were expressed by the patient and family member and they both agreed with treatment plan. Discharge Plan Departure Patient Disposition: Home Clinical Impression: Fall (on) (from) other stairs and steps, initial encounter Left shoulder strain Qualifiers: Encounter type: initial encounter Qualified Code(s): S46.912A - Strain of unspecified muscle, fascia and tendon at shoulder and upper arm level, left arm, initial encounter Discharge Date/Time: 02/14/19 18:23 Interventions: ED Discharge Assessment Last Done: 02/14/19 18:22 Instructions: How to Prevent Falls, DI for Shoulder Pain Activity Restrictions/Additional Instructions: You have been diagnosed with [ shoulder strain and mechanical fall on stairs ]. What to do: *Take your medications as directed. Cyclobenzaprine and [place] will make you drowsy. Please take precaution and not to drive, drink alcohol, or operate heavy equipment while on this medications. You could take cyclobenzaprine at night trying to sleep. [place] could cause constipation so please increase your fiber and fluid intake. Please use shoulder immobilizer for comfort and ice packs for the next couple of days frequently. *Follow up with your primary care provider next week and call for an appointment. You may need further imaging test and/orthopedic referral. Let them know you were seen in the ED and that we asked you to be seen in follow up. *Return to ED if you have any new, worsening, or concerning symptoms, such as [severe pain, tingling numbness to left arm, weakness, chest pain, difficulty breathing, dizziness, any acute worsening symptoms]. Prescriptions: New hydrocodone-acetaminophen [[place]] 5-325 mg tablet 1 tab PO Q4-6H PRN (Reason: pain) Qty: 20 RF: 0 <Marcie Da Silva DO - Last Filed: 02/15/19 08:42> Cosign ED Attending Cosignature Attestation: I was immediately available in the department for consultation, care was discussed. This documentation has been reviewed and I agree with assessment and plan. Supervised by Marcie Da Silva DO
[2019-02-14] MEDS: ONDANSETRON 4 MG ODT PREPACK 1 BOTTLE MISC (17:54)
[2019-02-14] MEDS: CYCLOBENZAPRINE 10 MG PREPACK 1 BOTTLE MISC (17:54)
[2019-02-14] MEDS: HYDROCODONE/ACET 5/325 PREPACK 1 BOTTLE MISC (17:54)
[2019-02-14 18:22] VITALS: BP 123/81; PULSE 71; RESP 20; O2SAT 100
== END 2019-02-14 18:23 | disposition home or self-care (01) ==
PROVIDERS: Emergency Provider Nurse Practitioner Family
DX: S46.912A Strain of unspecified muscle, fascia and tendon at shoulder and upper arm level, left arm, initial encounter (principal); W10.8XXA Fall (on) (from) other stairs and steps, initial encounter; S09.90XA Unspecified injury of head, initial encounter; Z79.01 Long term (current) use of anticoagulants
CPT/HCPCS: 70450; 73030; 73070; 99283; 99284

== ENCOUNTER 2019-02-18 17:59 | Emergency (ER) | payer MEDICARE, OTHER, SELFPAY ==
[2019-02-18 18:00] VITALS: BP 151/82; PULSE 67; RESP 17; O2SAT 100
--- NOTE | 2019-02-18 18:13 | DI.CT.S_ITS ---
PROCEDURE: CT HEAD/BRAIN WO CON INDICATIONS: vertigo possible CVA TECHNIQUE: Noncontrast 4.5 mm thick angled axial sections acquired from the foramen magnum to the vertex, with coronal and sagittal reformats. For radiation dose reduction, the following was used: automated exposure control, adjustment of mA and/or kV according to patient size. COMPARISON: [facility], CT, CT HEAD/BRAIN WO CON, 02/14/2019, 16:22. FINDINGS: Image quality: Excellent. CSF spaces: Basal cisterns are patent. No extra-axial fluid collections. The ventricles are symmetric in size and shape. Brain: No intracranial bleeds or masses. There is cerebral volume loss for age, with resultant ventricular and sulcal prominence. There are periventricular and deep white matter chronic small vessel ischemic changes. The again noted, remote infarction seen in the deep white matter of the left frontal lobe, extending into the left basal ganglia. No significant interval change. No evidence for loss of banerjee-white matter differentiation or sulcal effacement. There is intracranial internal carotid artery atherosclerosis. Skull and face: Calvarium and visualized facial bones appear intact, without suspicious lesions. Sinuses: Visualized sinuses and mastoids are clear. IMPRESSION: Stable CT evaluation of the head. No acute intracranial abnormalities or hemorrhage. Stable CT appearance of remote infarction involving the left basal ganglia and left deep white matter. If there is persistent or high clinical suspicion for acute cerebrovascular ischemia/stroke, more sensitive evaluation with brain MRI can be considered. Findings were discussed with Dr. Wilcox of the emergency department. Dictated by: Mario Alberto Garcia M.D. on 02/18/2019 at 18:48 Approved by: Mario Alberto Garcia M.D. on 02/18/2019 at 18:55
[2019-02-18 18:27] VITALS: TEMP 36.8
--- NOTE | 2019-02-18 18:32 | ED.GENADULT ---
HPI - General Adult General Chief complaint: Neuro Symptoms/Deficit Stated complaint: CVA Time Seen by Provider: 02/18/19 18:06 Source: patient Mode of arrival: EMS Limitations: no limitations History of Present Illness HPI narrative: Patient is a 68-year-old male who arrived to the emergency department by EMS for evaluation of vertigo and ataxia. Patient states that his symptoms started greater than 12 hours ago. He does have a prior history of a left-sided CVA with right-sided weakness with the upper extremity being more than the lower extremity. He stated that his symptoms started in the middle the night. Does seem to be positional. States that the spinning sensation occurs more when he is looking to the right into the left. He has periods where his relatively symptom-free however the vertigo sensation does seem to come and go and sometimes is not related to looking right or left. States he does have a slight headache. He also feels like he is ?ataxic ?he describes no new neurologic symptoms in his upper and lower extremity. Related Data Previous Rx's Medication Instructions Recorded hydrocodone-acetaminophen [[place]] 1 tab PO Q4-6H PRN #20 tab 02/14/19 meclizine 25 mg PO BID-TID PRN #14 tab 02/18/19 Allergies Allergy/AdvReac Type Severity Reaction Status Date / Time Sulfa (Sulfonamide Allergy Verified 02/14/19 15:42 Antibiotics) Review of Systems Constitutional Reports headache(s) ENT Ears, Nose, Mouth, and Throat: Denies abnormal hearing, Reports vertigo, Reports dizziness, Reports headache(s), Denies mouth lesions, Denies nasal congestion, Denies tinnitus and Denies sore throat Cardiovascular Denies chest pain, Denies palpitations and Denies dyspnea Respiratory Denies cough and Denies dyspnea Gastrointestinal Gastrointestinal: Denies abdominal pain, Denies nausea and Denies vomiting Genitourinary Denies dysuria Musculoskeletal Reports abnormal gait, Denies myalgias and Denies arthralgias Integumentary/Breasts Denies nail changes and Denies rash Neurologic Denies abnormal hearing, Reports abnormal gait, Denies behavioral changes, Denies confusion, Reports vertigo, Reports dizziness and Reports headache(s) Psychiatric Denies behavioral changes and Denies confusion Endocrine Denies palpitations Hematologic/Lymphatic Denies easy bleeding and Denies easy bruising [facility] Medical History History of CVA (cerebrovascular accident) (Acute) Right sided weakness (Chronic) History of atrial fibrillation without current medication (Resolved) Surgical History (Updated 02/15/19 @ 00:39 by ARDHA Miller) H/O cardiac radiofrequency ablation (Chronic) Social History Smoking Status: Never smoker alcohol intake: never substance use type: does not use Social History Smoking Status: Never smoker alcohol intake: never substance use type: does not use Exam Initial Vital Signs Initial Vital Signs: Vital Signs Pulse Rate 67 02/18/19 18:00 Respiratory Rate 17 02/18/19 18:00 Blood Pressure 151/82 H 02/18/19 18:00 Pulse Oximetry 100 02/18/19 18:00 Const General: cooperative, comfortable, well developed, well groomed and No acute distress Orientation: alert, awake and oriented x3 HENMT Head: normal to inspection and normocephalic Ears: TM's normal bilaterally Nose: external nose normal Eyes Pupils: PERRL EOM: EOM intact bilaterally Resp Effort & Inspection: normal respiratory effort Auscultation: clear to auscultation bilaterally Cardio Rate: regular rate Rhythm: regular rhythm Pulses: radial pulses present GI Inspection: non-distended Palpation: soft Skin Lesions: no lesions Rashes: no rashes Neuro General: alert, awake and oriented x3 Cognition: normal cognition Speech: speech normal Gait: not ataxic Coordination: [id number] test normal Other: 5/5 strength left upper extremity with [id number] normal. Patient with 2/5 strength right upper extremity and unable to do [id number]. He states that this is secondary to the stroke that he sustained the past. He states that this is not new. Patient has 5 out of strength 5 bilateral lower extremities. Able to do heel to olsen bilateral lower extremities without problems. Patient cranial nerves intact except he does have right-sided facial droop. He states this is not new. Is result of his prior CVA. We were able to reproduce the symptoms by the patient turning his head to the right. This improved when he took street. We are able to reproduce the symptoms again by turning his head to the left. Extrem General: normal to inspection and capillary refill normal Psych Appearance: grossly normal and well kempt Scores GCS [place] coma scale eye opening: Spontaneous Rylan coma scale verbal response: Orientated [place] coma scale motor response: Obey commands [place] coma scale total score: 15 NIH Stroke Scale Level of Conciousness: Alert, keenly responsive Ask month/age: Answers both questions correctly. Open/close eyes, close hand: Performs both tasks correctly Best gaze horizontal: Normal Visual almaraz: No visual loss Facial palsy: Partial paralysis, total or near total paralysis of lower face Left arm drift: No drift for full 10 sec Right arm drift: Some effort against gravity, cannot maintain, drifts down to bed Left leg drift: No drift for full 10 sec Right leg drift: No drift for full 10 sec Limb ataxia: Present in one limb Sensory on face/arms/legs: Normal, no sensory loss Best language: No aphasia, normal Dysarthria: Normal Extinction or inattention: No abnormality Total NIH Stroke scale score: 5 Course Orders Ordered: ED Orders 02/18/19 18:13 CT head/brain wo con Stat 02/18/19 18:50 Complete Blood Count AUTO DIFF Stat Comprehensive Metabolic Panel Stat Ethanol (ETOH) Stat Lipase Stat Partial Thromboplastin Time Stat Prothrombin Time INR Stat Troponin I Stat Discontinued Medications Diazepam (Valium) 2 mg IV NOW ONE Stop: 02/18/19 18:34 Last Admin: 02/18/19 18:53 Dose: 2 mg Sodium Chloride (Normal Saline 0.9%) 1,000 mls @ 150 mls/hr IV CONT ASHLEIGH Last Infusion: 02/18/19 20:59 Dose: 0 mls/hr Admin: 02/18/19 18:52 Dose: 150 mls/hr Meclizine HCl (Antivert) 25 mg PO NOW ONE Stop: 02/18/19 20:33 Last Admin: 02/18/19 20:39 Dose: 25 mg Vital Signs - 8 hr 02/18/19 19:35 02/18/19 20:00 Pulse Rate 66 62 Respiratory Rate 17 16 Blood Pressure [Left Arm] 148/83 H 157/84 H Pulse Oximetry 100 100 Medical Decision Making Medical Records Medical records reviewed: Yes I reviewed the patient's medical records. Lab Data Lab results reviewed: Yes I reviewed the patient's lab results. Result diagrams: 02/18/19 18:50 02/18/19 18:50 Lab Results 02/18/19 02/18/19 02/18/19 Range/Units 18:50 18:50 18:50 WBC 5.2 (4.5-11.0) X10^3/uL RBC 4.24 L (4.5-5.9) X10^6/uL Hgb 13.1 L (13.5-17.5) g/dL Hct 38.5 L (41-53) % MCV 90.6 (80-100) fL MCH 30.9 (26-34) PG MCHC 34.1 (30-36) % RDW 12.6 (11.6-14.8) % Plt Count 192 (150-400) X10^3/uL Neut % (Auto) 66.4 (50-75) % Lymph % (Auto) 24.1 L (25-40) % Greer % (Auto) 6.1 (3-14) % Eos % (Auto) 2.5 (2-4) % Baso % (Auto) 0.9 (0-2) % Neut # (Auto) 3400 (2438-8243) /uL Lymph # (Auto) 1200 (1567-2453) /uL Greer # (Auto) 300 (0-900) /uL Eos # (Auto) 100 (0-450) /uL Baso # (Auto) 0 (0-100) /uL PT 12.9 H (10.1-12.7) SECONDS INR 1.1 (0.9-1.3) APTT 31 (26.4-36.2) SECONDS Sodium 140 (137-145) mmol/L Potassium 3.7 (3.4-5.1) mmol/L Chloride 106 (98-107) mmol/L Carbon Dioxide 28 (22-32) mmol/L BUN 17 (9-20) mg/dL Creatinine 1.00 (0.66-1.25) mg/dL Estimated GFR > 60.0 (>60) mL/min BUN/Creatinine Ratio 17.0 (6-22) Glucose 95 (80-110) mg/dL Calcium 9.1 (8.4-10.2) mg/dL Total Bilirubin 0.3 (0.2-1.3) mg/dL AST 34 (17-59) IU/L ALT 27 (21-72) IU/L Alkaline Phosphatase 73 (38-126) U/L Troponin I < 0.012 (0.01-0.034) ng/mL Total Protein 7.3 (6.3-8.2) g/dL Albumin 3.9 (3.5-5.0) g/dL Globulin 3.4 (1.7-4.1) g/dL Albumin/Globulin Ratio 1.1 (1.0-2.8) Lipase 68 (23-300) U/L Ethyl Alcohol < 10 mg/dL Imaging Data CT scan - head: Radiologist's impression: [address] [address] [address] Scan Report Signed Patient: Andreas Corona CMR#: [id number] : [id number]:[id number] Age/Sex: 68 / MDate of Service: 02/18/19 Loc: ED Accession Number: [id number] Procedure: CT head/brain wo con Ordering Provider: Graham Wilcox D.O. PROCEDURE: CT HEAD/BRAIN WO CON INDICATIONS: vertigo possible CVA TECHNIQUE: Noncontrast 4.5 mm thick angled axial sections acquired from the foramen magnum to the vertex, with coronal and sagittal reformats. For radiation dose reduction, the following was used: automated exposure control, adjustment of mA and/or kV according to patient size. COMPARISON: [facility], CT, CT HEAD/BRAIN WO CON, 02/14/2019, 16:22. FINDINGS: Image quality: Excellent. CSF spaces: Basal cisterns are patent. No extra-axial fluid collections. The ventricles are symmetric in size and shape. Brain: No intracranial bleeds or masses. There is cerebral volume loss for age, with resultant ventricular and sulcal prominence. There are periventricular and deep white matter chronic small vessel ischemic changes. The again noted, remote infarction seen in the deep white matter of the left frontal lobe, extending into the left basal ganglia. No significant interval change. No evidence for loss of banerjee-white matter differentiation or sulcal effacement. There is intracranial internal carotid artery atherosclerosis. Skull and face: Calvarium and visualized facial bones appear intact, without suspicious lesions. Sinuses: Visualized sinuses and mastoids are clear. IMPRESSION: Stable CT evaluation of the head. No acute intracranial abnormalities or hemorrhage. Stable CT appearance of remote infarction involving the left basal ganglia and left deep white matter. If there is persistent or high clinical suspicion for acute cerebrovascular ischemia/stroke, more sensitive evaluation with brain MRI can be considered. Findings were discussed with Dr. Wilcox of the emergency department. Dictated by: Mario Alberto Garcia M.D. on 02/18/2019 at 18:48 Approved by: Mario Alberto Garcia M.D. on 02/18/2019 at 18:55 ECG Data Attestation: I personally reviewed and interpreted this ECG as follows: Prior ECG tracings: not available for review Interpretation: Sinus rhythm Ventricular rate is 62 Normal axis Normal QRS Normal QTC No ST T wave changes MDM Narrative Medical decision making narrative: Patient's head CT shows no new changes. His EKG is unremarkable. He has NIH score 5 however all of the positive findings on the NIH score are not new today. His symptoms are consistent with vertigo. They are reproducible by turning his head to the right and to the left. He was given Valium which he states almost completely resolved all of his symptoms. The ataxia secondary to the vertigo. Patient has never had vertigo in the past. He has no other ear nose and throat symptoms. Had a discussion with the patient regarding his symptoms. Informed him that in his situation where he has had a stroke in the past that he has having vertigo that there is some concern about other central neurologic causes of his symptoms. We did discuss the possibility of admitting him to the hospital for an MRI given his prior history. 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 After this discussion the patient decided not to be admitted to the hospital. He is visiting the area and has a flight home tomorrow. He is going to stay in the local area tonight. He states that if his symptoms worsen or develops new symptoms that he would return to the emergency department. Will send home with a prescription for meclizine. He was given strict return precautions. Both he and his who is at bedside expressed understanding and agreement this plan. Discharge Plan Departure Patient Disposition: Home Clinical Impression: Vertigo Discharge Date/Time: 02/18/19 20:59 Interventions: ED Discharge Assessment Last Done: 02/18/19 20:59 Instructions: DI for Vertigo Activity Restrictions/Additional Instructions: Take the medications as directed. If you develop any other new symptoms to include new neurologic findings please return to the emergency department immediately for further evaluation. When you return home talk with your primary provider about the indications for an MRI. Prescriptions: New meclizine 25 mg tablet 25 mg PO BID-TID PRN (Reason: motion sickness) Qty: 14 RF: 0 No Action hydrocodone-acetaminophen [[place]] 5-325 mg tablet 1 tab PO Q4-6H PRN (Reason: pain) Qty: 20 RF: 0
[2019-02-18] MEDS: SODIUM CHLORIDE 0.9% 1,000 ML 150 ML IV (18:52)
[2019-02-18] MEDS: diazePAM 10 MG/2 ML SYRINGE 2 MG IV (18:53)
[2019-02-18 18:58] LABS: Add Manual Diff / Slide Review NO; Basophils Absolute Auto 0 /uL (0-100); Basophils Percent Auto 0.9 % (0-2); Eosinophils Absolute Auto 100 /uL (0-450); Eosinophils Percent Auto 2.5 % (2-4); Hematocrit 38.5 % (41-53); Hemoglobin 13.1 g/dL (13.5-17.5); Lymphocytes Absolute Auto 1200 /uL (1100-4500); Lymphocytes Percent Auto 24.1 % (25-40); Mean Corpuscular HGB Conc 34.1 % (30-36); Mean Corpuscular Hemoglobin 30.9 PG (26-34); Mean Corpuscular Volume 90.6 fL (80-100); Monocytes Absolute Auto 300 /uL (0-900); Monocytes Percent Auto 6.1 % (3-14); Neutrophils Absolute Auto 3400 /uL (1500-7000); Neutrophils Percent Auto 66.4 % (50-75); Platelet Count 192 X10^3/uL (150-400); Red Blood Cell Count 4.24 X10^6/uL (4.5-5.9); Red Cell Distribution Width 12.6 % (11.6-14.8); White Blood Cell Count 5.2 X10^3/uL (4.5-11.0)
[2019-02-18 19:01] VITALS: BP 158/85; PULSE 64; RESP 18; O2SAT 100
[2019-02-18 19:09] LABS: INR 1.1 (0.9-1.3); Prothrombin Time 12.9 SECONDS (10.1-12.7)
--- NOTE | 2019-02-18 19:12 | PC.NURSE ---
pt had a cva 20 years ago, right sided deficits.
[2019-02-18 19:13] LABS: PTT Partial Thromboplastin Tim 31 SECONDS (26.4-36.2)
[2019-02-18 19:14] LABS: Alanine Aminotransferase 27 IU/L (21-72); Albumin 3.9 g/dL (3.5-5.0); Albumin Globulin Ratio 1.1 (1.0-2.8); Alkaline Phosphatase 73 U/L (38-126); Aspartate Aminotransferase 34 IU/L (17-59); Bilirubin Total 0.3 mg/dL (0.2-1.3); Blood Urea Nitrogen 17 mg/dL (9-20); Calcium 9.1 mg/dL (8.4-10.2); Carbon Dioxide 28 mmol/L (22-32); Chloride 106 mmol/L (98-107); Estimated Glomerular Filt Rate > 60.0 mL/min (>60); Globulin 3.4 g/dL (1.7-4.1); Glucose 95 mg/dL (80-110); HEMOLYSIS < 15 (0-50); Lipase 68 U/L (23-300); Potassium 3.7 mmol/L (3.4-5.1); Sodium 140 mmol/L (137-145); Total Protein 7.3 g/dL (6.3-8.2)
[2019-02-18 19:25] LABS: Ethanol (ETOH) < 10 mg/dL
[2019-02-18 19:26] LABS: Troponin I < 0.012 ng/mL (0.01-0.034)
[2019-02-18 19:35] VITALS: BP 148/83; PULSE 66; RESP 17; O2SAT 100
[2019-02-18 20:00] VITALS: BP 157/84; PULSE 62; RESP 16; O2SAT 100
[2019-02-18] MEDS: MECLIZINE HCL 12.5 MG TABLET 25 MG PO (20:39)
== END 2019-02-18 20:59 | disposition home or self-care (01) ==
PROVIDERS: Emergency Provider Emergency Medicine
DX: R42 Dizziness and giddiness (principal)
CPT/HCPCS: 36415; 70450; 80053; 80320; 83690; 84484; 85025; 85610; 85730; 93005; 93010; 96361; 96374; 99283; 99285; J3360